=== PATIENT | female | born 1965 | race Caucasian/White ===

== ENCOUNTER → 2019-04-02 | Outpatient (CLI) | payer MEDICAID, OTHER ==
--- NOTE | 2019-04-02 10:14 | REPMRS ---
Patient History The patient states she had a clinical breast exam in February 2019. Family history of prostate cancer at age 50 or over in father. Took unspecified hormones for 1 month. Digital Mammo Diagnostic Bilateral: April 02, 2019 - Exam #: [id number] Bilateral CC and MLO view(s) were taken. Technologist: Moon Torres Technologist Prior study comparison: January 26, 2016, digital woman screen mammo, performed at [facility]. December 29, 2013, digital woman screen mammo, performed at [facility]. December 27, 2012, digital woman screen mammo, performed at [facility]. FINDINGS: There are scattered fibroglandular densities. There has been some involutional change diffusely in the breast parenchyma bilaterally. There has been no change in the appearance of the mammogram from the prior studies. There is a mild amount of scattered fibroglandular density which is fairly symmetric. There is no interval development of dominant mass, architectural distortion, or grouped microcalcification suggestive of malignancy. 3-D tomosynthesis shows no additional findings. Assessment: BI-RADS/ACR category 1 mammogram. Negative Mammogram. Recommendation Routine screening mammogram of both breasts in 1 year (for women over age 40). This patient's Lifetime Breast Cancer Risk is estimated at 10.1 %. This mammogram was interpreted with the aid of an FDA-approved computer-aided dectection system. Electronically Signed By: Zay Diggs MD 04/02/19 1010
== END ==
LOC: M RAD 09:25
PROVIDERS: ATTEND Nurse Practitioner Women's Health
DX: N64.4 Mastodynia (principal); Z80.42 Family history of malignant neoplasm of prostate
CPT/HCPCS: 77066; G0279

== ENCOUNTER → 2019-04-30 | Outpatient (REF) | payer OTHER | LOC: M SFHCWAGY 13:09 | PROVIDERS: ATTEND Nurse Practitioner Women's Health | DX: Z12.4 Encounter for screening for malignant neoplasm of cervix (principal) ==

== ENCOUNTER → 2019-07-07 | Outpatient (CLI) | payer OTHER | LOC: M LABSMTC 13:37 | PROVIDERS: ATTEND Family Medicine | DX: Z11.59 Encounter for screening for other viral diseases (principal) | CPT/HCPCS: C9803; U0003 ==

== ENCOUNTER 2021-04-11 15:45 | Emergency (ER) | payer OTHER, SELFPAY ==
[~2021-04-11] VITALS: Ht 149.9 cm; Wt 135.0 kg
[2021-04-11] MEDS ORDERED: IBUPROFEN 800 MG TAB PO ONE (19:50)
[2021-04-11 22:00] VITALS: BP 124/86
== END 2021-04-11 22:06 | disposition home or self-care (01) ==
LOC: M ED 15:45
DX: M25.512 Pain in left shoulder (principal); R22.32 Localized swelling, mass and lump, left upper limb; W00.0XXA Fall on same level due to ice and snow, initial encounter; Y92.009 Unspecified place in unspecified non-institutional (private) residence as the place of occurrence of the external cause; Y93.9 Activity, unspecified; Y99.9 Unspecified external cause status